=== PATIENT | male | born 1985 | race American Indian/Alaskan Native ===

== ENCOUNTER 2020-10-06 22:12 | Emergency (ER) | payer MEDICAID ==
[2020-10-06 22:25] VITALS: BP 125/75
--- NOTE | 2020-10-06 23:14 | XRay Report ---
CHEST 2 VIEWS INDICATION / CLINICAL INFORMATION: SOB. COMPARISON: None available. FINDINGS: SUPPORT DEVICES: None. HEART / MEDIASTINUM: No significant abnormality. LUNGS / PLEURA: Bullous emphysema both lung apices, right greater than left. No significant pulmonary or pleural abnormality. No pneumothorax. ADDITIONAL FINDINGS: No significant additional findings. IMPRESSION: 1. Bullous emphysema. No acute findings Signer Name: Carson Dawson MD Signed: 10/06/2020 11:10 PM Workstation Name: [id number]
[2020-10-07] MEDS ORDERED: IBUPROFEN 600 MG TAB PO ONE (00:41)
[2020-10-07] MEDS ORDERED: predniSONE 20 MG TAB PO ONE (00:41)
[2020-10-07] MEDS ORDERED: IPRATROPIUM/ALBUTEROL SULFATE 3 ML AMPUL.NEB IH ONE (00:41)
[2020-10-07] MEDS ORDERED: ALBUTEROL 2.5 MG/3 ML NEBU IH ONE (00:41)
--- NOTE | 2020-10-07 02:19 | Emergency Department Report ---
- General Chief Complaint: Dyspnea/Respdistress Stated Complaint: ASTHMA Source: patient Mode of arrival: Ambulatory Limitations: No Limitations - History of Present Illness Initial Comments: Patient is a 35-year-old -Japanese male with a history of asthma, chronic osteoarthritis and bronchitis who presents to the ED with complaint of acute onset persistent nasal and sinus congestion, persistent dry cough, frontal sinus pressure, wheezing and shortness of breath for the last 4 days. Patient states that he has been using albuterol inhaler with no relief. Patient also complains of right wrist pain after heavy lifting at work 2 days ago. Patient denies dizziness, syncope, fall, nausea and vomiting, chest pain, fever, chills, sore throat, abdominal pain, neck pain, change in vision, traumatic injury, low back pain or dysuria. MD Complaint: cough, rhinorrhea, nasal congestion, sinus pain, other (right wrist pain) -: Sudden, days(s) (4) Severity: moderate Severity scale (0 -10): 6 Quality: sharp, aching Consistency: constant Improves With: nothing Worsens With: nothing Associated Symptoms: denies other symptoms, rhinorrhea, nasal congestion, cough, shortness of breath. denies: fever, chills, myalgias, diaphoresis, headache, sore throat, stiff neck, chest pain, abdominal pain, nausea, vomiting, diarrhea, dysuria, rash, right sweats, epistaxis, hoarseness, ear pain Treatments Prior to Arrival: "cold medicine", other (Bronchodilators) - Related Data Previous Rx's Medication Instructions Recorded Last Taken Type Albuterol Sulfate [Proventil Hfa] 1 - 2 puff IH Q6H PRN #1 hfa.aer.ad 10/07/20 Unknown Rx Benzonatate [Tessalon Perles] 100 mg PO Q8HR #30 capsule 10/07/20 Unknown Rx Cetirizine HCl [Zyrtec 10mg tab] 10 mg PO DAILY #30 tablet 10/07/20 Unknown Rx Ibuprofen [Motrin] 600 mg PO Q8H PRN #30 tablet 10/07/20 Unknown Rx Prednisone [predniSONE 10 mg 10 mg PO .TAPER #21 tab.ds.pk 10/07/20 Unknown Rx (6-Day Pack, 21 Tabs)] Allergies Allergy/AdvReac Type Severity Reaction Status Date / Time No Known Allergies Allergy Unverified 10/06/20 22:24 ED Review of Systems ROS: Stated complaint: ASTHMA Other details as noted in HPI Constitutional: denies: chills, fever Eyes: denies: eye pain, eye discharge, vision change ENT: congestion. denies: ear pain, throat pain Respiratory: cough, shortness of breath, wheezing Cardiovascular: denies: chest pain, palpitations Endocrine: no symptoms reported Gastrointestinal: denies: abdominal pain, nausea, diarrhea Genitourinary: denies: urgency, dysuria Musculoskeletal: joint swelling, arthralgia (Right wrist pain). denies: back pain, myalgia Skin: denies: rash, lesions Neurological: denies: headache, weakness, paresthesias Psychiatric: denies: anxiety, depression Hematological/Lymphatic: denies: easy bleeding, easy bruising ED Past Medical Hx - Past Medical History Hx Arthritis: Yes Hx Asthma: Yes Additional medical history: bronchitis - Surgical History Past Surgical History?: Yes Additional Surgical History: r knee surgery, umbilical hernia repair - Social History Smoking Status: Current Every Day Smoker - Medications Home Medications: Home Medications Medication Instructions Recorded Confirmed Last Taken Type Albuterol Sulfate [Proventil Hfa] 1 - 2 puff IH Q6H PRN #1 hfa.aer.ad 10/07/20 Unknown Rx Benzonatate [Tessalon Perles] 100 mg PO Q8HR #30 capsule 10/07/20 Unknown Rx Cetirizine HCl [Zyrtec 10mg tab] 10 mg PO DAILY #30 tablet 10/07/20 Unknown Rx Ibuprofen [Motrin] 600 mg PO Q8H PRN #30 tablet 10/07/20 Unknown Rx Prednisone [predniSONE 10 mg 10 mg PO .TAPER #21 tab.ds.pk 10/07/20 Unknown Rx (6-Day Pack, 21 Tabs)] ED Physical Exam - General Limitations: No Limitations General appearance: alert, in no apparent distress - Head Head exam: Present: atraumatic, normocephalic, normal inspection - Eye Eye exam: Present: normal appearance, PERRL, EOMI Pupils: Present: normal accommodation - ENT ENT exam: Present: normal orophraynx, mucous membranes moist, TM's normal bilaterally, normal external ear exam, other (Grossly congested nasal passages; palpable maxillary and frontal sinus tenderness) - Neck Neck exam: Present: normal inspection, full ROM. Absent: tenderness, meningismus, lymphadenopathy - Respiratory Respiratory exam: Present: wheezes (Mildly diffuse coarse wheezes throughout). Absent: respiratory distress, rales, rhonchi, chest wall tenderness, accessory muscle use, decreased breath sounds - Cardiovascular Cardiovascular Exam: Present: regular rate, normal rhythm, normal heart sounds. Absent: systolic murmur, diastolic murmur, rubs, gallop - GI/Abdominal GI/Abdominal exam: Present: soft, normal bowel sounds. Absent: tenderness, guarding, rebound, hyperactive bowel sounds, hypoactive bowel sounds, organomegaly - Extremities Exam Extremities exam: Present: normal inspection, full ROM, tenderness (Palpable right wrist joint tenderness with mild swelling), normal capillary refill, joint swelling - Back Exam Back exam: Present: normal inspection, full ROM. Absent: tenderness, CVA tenderness (R), CVA tenderness (L), muscle spasm, paraspinal tenderness, vertebral tenderness - Neurological Exam Neurological exam: Present: alert, oriented X3, CN II-XII intact, normal gait, reflexes normal - Psychiatric Psychiatric exam: Present: normal affect, normal mood - Skin Skin exam: Present: warm, dry, intact, normal color. Absent: rash ED Course Vital Signs 10/06/20 10/07/20 22:22 01:54 Temperature 98.0 F Pulse Rate 75 Pulse Rate [ 88 Bilateral Throughout] Respiratory 18 Rate Respiratory 20 Rate [Bilateral Throughout] Blood Pressure 125/75 O2 Sat by Pulse 97 Oximetry ED Medical Decision Making - Radiology Data Radiology results: report reviewed, image reviewed [facility] [address] [place] [address] XRay Report Signed Patient: MAGGIE KRAUS MR#: [id number] 34 : 1985 Acct:[id number] Age/Sex: 35 / M ADM Date: 10/06/20 Loc: ED Attending Dr: Ordering Physician: LUIS EDUARDO EID MD Date of Service: 10/06/20 Procedure(s): XR chest routine 2V Accession Number(s): [id number] cc: ED MD STANTON Fluoro Time In Minutes: CHEST 2 VIEWS INDICATION / CLINICAL INFORMATION: SOB. COMPARISON: None available. FINDINGS: SUPPORT DEVICES: None. HEART / MEDIASTINUM: No significant abnormality. LUNGS / PLEURA: Bullous emphysema both lung apices, right greater than left. No significant pulmonary or pleural abnormality. No pneumothorax. ADDITIONAL FINDINGS: No significant additional findings. IMPRESSION: 1. Bullous emphysema. No acute findings Signer Name: Carson Dawson MD Signed: 10/06/2020 11:10 PM Workstation Name: [id number] Transcribed By: TL Dictated By: Carson Dawson MD Electronically Authenticated By: Carson Dawson MD Signed Date/Time: 10/06/202309 DD/ 08 TD/TT: - Medical Decision Making This is a 35-year-old -Japanese male with a history of asthma, chronic osteoarthritis and bronchitis who presents to the ED with complaint of acute onset persistent nasal and sinus congestion, persistent dry cough, frontal sinus pressure, wheezing and shortness of breath for the last 4 days. Patient states that he has been using albuterol inhaler with no relief. Patient also complains of right wrist pain after heavy lifting at work 2 days ago. In the ED, patient is alert and oriented x3 and is not in any distress. Patient was treated in the ED with albuterol and DuoNeb nebulizers. Patient also received steroids. Chest x-ray shows no acute cardiopulmonary abnormalities or pneumonitis. On reevaluation, patient's wheezing resolved patient felt better and was discharged home on medications. Patient was advised to follow-up with his primary care physician in 5 to 7 days for reevaluation. Patient was advised return to the ED immediately if symptoms get worse. - Differential Diagnosis Asthma; Bronchitis; Pneumonia; URI; Wrist tendonitis Critical care attestation.: If time is entered above; I have spent that time in minutes in the direct care of this critically ill patient, excluding procedure time. ED Disposition Clinical Impression: Acute bronchitis with asthma with acute exacerbation, Acute upper respiratory infection, Tendinitis of right wrist Disposition: DC-01 TO HOME OR SELFCARE Is pt being admited?: No Does the pt Need Aspirin: No Condition: Stable Instructions: Acute Bronchitis (ED), Upper Respiratory Infection, Adult, [id number], Cough, Adult, Gruy-fn-Fjze, Acute Bronchitis, Adult, Twnx-jp-Algy, Asthma, Adult, [id number]-gu-Gazu, Tendinitis, [id number] Additional Instructions: Chest x-ray shows no acute cardiopulmonary abnormalities or pneumonitis. Therefore take medication with food, drink plenty of fluids and follow-up with your primary care physician in 7 to 10 days for reevaluation. Return to the ED immediately if symptoms get worse. Prescriptions: Ibuprofen [Motrin] 600 mg PO Q8H PRN #30 tablet PRN Reason: Pain Prednisone [predniSONE 10 mg (6-Day Pack, 21 Tabs)] 10 mg PO .TAPER #21 tab.ds.pk Albuterol Sulfate [Proventil Hfa] 1 - 2 puff IH Q6H PRN #1 hfa.aer.ad PRN Reason: Wheezing Benzonatate [Tessalon Perles] 100 mg PO Q8HR #30 capsule Cetirizine HCl [Zyrtec 10mg tab] 10 mg PO DAILY #30 tablet Referrals: [facility] [Provider Group] - 3-5 Days Forms: Work/School Release Form(ED) Time of Disposition: 02:20 Print Language: KYRGYZ
== END 2020-10-07 02:50 | disposition home or self-care (01) ==
LOC: ED 22:12
DX: J06.9 Acute upper respiratory infection, unspecified (principal); J20.9 Acute bronchitis, unspecified; M77.8 Other enthesopathies, not elsewhere classified; F17.200 Nicotine dependence, unspecified, uncomplicated; J45.909 Unspecified asthma, uncomplicated; M19.90 Unspecified osteoarthritis, unspecified site; Z79.899 Other long term (current) drug therapy; Z98.890 Other specified postprocedural states
CPT/HCPCS: 71046; 94640; 99283; J7512; 94644

== ENCOUNTER 2020-10-15 00:54 | Emergency (ER) | payer SELFPAY ==
--- NOTE | 2020-10-15 02:47 | XRay Report ---
LEFT FOOT 3 VIEWS INDICATION / CLINICAL INFORMATION: Injury to foot. COMPARISON: None available. FINDINGS: Diffuse soft tissue swelling of the forefoot. No fracture or other skeletal abnormality. LEFT ANKLE 2 VIEWS INDICATION / CLINICAL INFORMATION: Injury to foot. COMPARISON: None available. FINDINGS: No fracture or other significant abnormality. Signer Name: Joseph Call MD Signed: 10/15/2020 2:42 AM Workstation Name: [id number]
[2020-10-15] MEDS ORDERED: IBUPROFEN 600 MG TAB PO ONE ×2 (05:02→05:03)
[2020-10-15] MEDS ORDERED: HYDROcodone/ACETAMINOPHEN 5-325 MG TAB PO ONE (05:03)
--- NOTE | 2020-10-15 05:08 | Emergency Department Report ---
ED Lower Extremity HPI - General Chief Complaint: Extremity Injury, Lower Stated Complaint: LT FOOT AND ANKLE PAIN Time Seen by Provider: 10/15/20 05:03 Source: patient Mode of arrival: Wheelchair Limitations: No Limitations - History of Present Illness Initial Comments: 35-year-old -[place] male presents to the emergency room for left foot injury while at work with. Patient states he smashed his foot between 2 pallets at work. States the pain is worse with walking or putting any weight on. Patient states the swelling seems to gotten worse. Patient did not take anything prior to arrival. History of asthma. Only takes albuterol and Claritin for pollen. Onset/Timin -: hour(s) (To arrival) Injury: Ankle: Left, Foot: Left Type of Injury: other (Crush) Place: work Severity scale (0 -10): 10 Improves With: immobilization Worsens With: weight bearing, movement, palpation Associated Symptoms: swelling, tingling, unable to bear weight - Related Data Previous Rx's Medication Instructions Recorded Last Taken Type Albuterol Sulfate [Proventil Hfa] 1 - 2 puff IH Q6H PRN #1 hfa.aer.ad 10/07/20 Unknown Rx Benzonatate [Tessalon Perles] 100 mg PO Q8HR #30 capsule 10/07/20 Unknown Rx Cetirizine HCl [Zyrtec 10mg tab] 10 mg PO DAILY #30 tablet 10/07/20 Unknown Rx Ibuprofen [Motrin] 600 mg PO Q8H PRN #30 tablet 10/07/20 Unknown Rx Prednisone [predniSONE 10 mg 10 mg PO .TAPER #21 tab.ds.pk 10/07/20 Unknown Rx (6-Day Pack, 21 Tabs)] Ibuprofen [Motrin 800 MG tab] 800 mg PO Q8HR PRN #30 tablet 10/15/20 Unknown Rx Allergies Allergy/AdvReac Type Severity Reaction Status Date / Time No Known Allergies Allergy Unverified 10/06/20 22:24 ED Review of Systems ROS: Stated complaint: LT FOOT AND ANKLE PAIN Other details as noted in HPI ED Past Medical Hx - Past Medical History Previous Medical History?: Yes Hx Arthritis: Yes Hx Asthma: Yes Additional medical history: bronchitis - Surgical History Past Surgical History?: Yes Additional Surgical History: r knee surgery, umbilical hernia repair - Social History Smoking Status: Current Every Day Smoker Substance Use Type: Marijuana - Medications Home Medications: Home Medications Medication Instructions Recorded Confirmed Last Taken Type Albuterol Sulfate [Proventil Hfa] 1 - 2 puff IH Q6H PRN #1 hfa.aer.ad 10/07/20 Unknown Rx Benzonatate [Tessalon Perles] 100 mg PO Q8HR #30 capsule 10/07/20 Unknown Rx Cetirizine HCl [Zyrtec 10mg tab] 10 mg PO DAILY #30 tablet 10/07/20 Unknown Rx Ibuprofen [Motrin] 600 mg PO Q8H PRN #30 tablet 10/07/20 Unknown Rx Prednisone [predniSONE 10 mg 10 mg PO .TAPER #21 tab.ds.pk 10/07/20 Unknown Rx (6-Day Pack, 21 Tabs)] Ibuprofen [Motrin 800 MG tab] 800 mg PO Q8HR PRN #30 tablet 10/15/20 Unknown Rx ED Physical Exam - General Limitations: No Limitations General appearance: alert, in no apparent distress - Head Head exam: Present: atraumatic, normocephalic - Eye Eye exam: Present: normal appearance - ENT ENT exam: Present: normal exam - Neck Neck exam: Present: normal inspection, full ROM - Respiratory Respiratory exam: Absent: accessory muscle use - Expanded Lower Extremity Exam Left Hip exam: Present: normal inspection Upper Leg exam: Present: normal inspection Knee exam: Present: normal inspection Lower Leg exam: Present: normal inspection Ankle exam: Present: tenderness Foot/Toe exam: Present: full ROM, tenderness, swelling. Absent: erythema Neuro vascular tendon exam: Present: no vascular compromise Gait: Positive: unable to bear weight - Back Exam Back exam: Present: normal inspection, full ROM - Neurological Exam Neurological exam: Present: alert, oriented X3 - Psychiatric Psychiatric exam: Present: normal affect, normal mood - Skin Skin exam: Present: warm, dry, intact, normal color. Absent: rash ED Course Vital Signs 10/15/20 01:00 Temperature 98.3 F Pulse Rate 98 H Respiratory 18 Rate Blood Pressure 118/89 O2 Sat by Pulse 98 Oximetry ED Lower Extremity MDM - Medical Decision Making 35-year-old -[place] male presents to the emergency room for left foot injury while at work with. Patient states he smashed his foot between 2 pallets at work. States the pain is worse with walking or putting any weight on. Patient states the swelling seems to gotten worse. Patient did not take anythin g prior to arrival. History of asthma. Only takes albuterol and Claritin for pollen. X-ray of ankle and foot shows no fractures or subluxation or dislocation. Patient is given ibuprofen and [place] 5/325 as patient has an ride home. Patient was placed on crutches Kirk bandage to his left foot. Work excuse given. Critical care attestation.: If time is entered above; I have spent that time in minutes in the direct care of this critically ill patient, excluding procedure time. ED Disposition Clinical Impression: Sprain of foot, left, Left ankle injury Disposition: TO HOME OR SELFCARE Is pt being admited?: No Does the pt Need Aspirin: No Condition: Stable Instructions: Foot Sprain Additional Instructions: X-rays negative for any acute fractures. Please put ice on it, elevate wear Kirk bandage and use crutches to ambulate. Prescriptions: Ibuprofen [Motrin 800 MG tab] 800 mg PO Q8HR PRN #30 tablet PRN Reason: Pain , Severe (7-10) Referrals: PRIMARY CARE, [Primary Care Provider] - 3-5 Days Forms: Work/School Release Form(ED)
[2020-10-15 05:37] VITALS: BP 118/65
== END 2020-10-15 05:37 | disposition home or self-care (01) ==
LOC: ED 00:54
DX: S93.602A Unspecified sprain of left foot, initial encounter (principal); S93.402A Sprain of unspecified ligament of left ankle, initial encounter; M19.90 Unspecified osteoarthritis, unspecified site; J45.909 Unspecified asthma, uncomplicated; F17.200 Nicotine dependence, unspecified, uncomplicated; F12.10 Cannabis abuse, uncomplicated; Z79.899 Other long term (current) drug therapy; W23.0XXA Caught, crushed, jammed, or pinched between moving objects, initial encounter; Y93.89 Activity, other specified; Y92.89 Other specified places as the place of occurrence of the external cause; Y99.8 Other external cause status
CPT/HCPCS: 99283

== ENCOUNTER 2022-01-17 11:20 | Emergency (ER) | payer SELFPAY ==
[2022-01-17 12:41] LABS: Hematocrit 58.5 % (35.5-45.6); Hemoglobin 19.6 gm/dl (11.8-15.2); Mean Corpuscular HGB Conc 33 % (32-34); Mean Corpuscular Volume 90 fl (84-94); Platelet Count 252 K/mm3 (140-440); Red Blood Count 6.49 M/mm3 (3.65-5.03)
[2022-01-17 13:15] LABS: Alanine Aminotransferase 16 units/L (7-56); Albumin 5.3 g/dL (3.9-5); BUN/Creatinine Ratio 10; Blood Urea Nitrogen 30 mg/dL (9-20); Calcium 10.6 mg/dL (8.4-10.2); Hemolysis Index 16
--- NOTE | 2022-01-17 14:31 | XRay Report ---
CHEST 2 VIEWS INDICATION / CLINICAL INFORMATION: Chest pain. COMPARISON: 10/06/20. FINDINGS: SUPPORT DEVICES: None. HEART / MEDIASTINUM: The heart size and pulmonary vasculature are normal. The aorta is normal in carisa lashawn. LUNGS / PLEURA: There are bullous changes in both upper lung zones, right greater than left, which bowser ve increased. No acute pulmonary or pleural abnormality. No pneumothorax. ADDITIONAL FINDINGS: No significant additional findings. IMPRESSION: Bullous changes in both upper lung zones, right greater than left, have increased. No pne umothorax or other change. Signer Name: Alirio Briceño MD Signed: 01/17/2022 2:27 PM Workstation Name: [employer]
[2022-01-17] MEDS ORDERED: methylPREDNISolone Sod Succinate 125 MG/2 ML INJ IV ONE (21:51)
[2022-01-17] MEDS ORDERED: SODIUM CHLORIDE 0.9% 1000 ML 1,000 ML IV ONE (21:51)
[2022-01-17] MEDS ORDERED: ALBUTEROL 2.5 MG/3 ML NEBU IH ONE (21:51)
[2022-01-17] MEDS ORDERED: IPRATROPIUM 0.02% NEBU 2.5 ML IH ONE (21:51)
[2022-01-17] MEDS ORDERED: fentaNYL 100 MCG/2 ML INJ IV ONE (23:02)
[2022-01-18 00:13] LABS: Creatine Kinase MB 3.1 ng/mL (0.0-4.0)
--- NOTE | 2022-01-18 00:48 | Emergency Department Report ---
ED General Adult HPI - General Chief complaint: Dyspnea/Respdistress Stated complaint: SOB/LOSS OF BLOOD/HEMMOROID Time Seen by Provider: 01/17/22 21:42 Source: patient Mode of arrival: Ambulatory Limitations: No Limitations - History of Present Illness Initial comments: Pt reports his hemorrhoids have been bleeding since sunday. Pt reports pain to the lower right area of his chest. Pt states he feels like he is going to pass out from weakness. + SOB, breath sounds are clear in triage -: Gradual Location: buttocks Radiation: non-radiation Severity scale (0 -10): 10 Quality: aching Consistency: constant Improves with: none Worsens with: none - Related Data Previous Rx's Medication Instructions Recorded Last Taken Type Albuterol Sulfate [Proventil Hfa] 1 - 2 puff IH Q6H PRN #1 hfa.aer.ad 10/07/20 Unknown Rx Benzonatate [Tessalon Perles] 100 mg PO Q8HR #30 capsule 10/07/20 Unknown Rx Cetirizine HCl [Zyrtec 10mg tab] 10 mg PO DAILY #30 tablet 10/07/20 Unknown Rx Ibuprofen [Motrin] 600 mg PO Q8H PRN #30 tablet 10/07/20 Unknown Rx Prednisone [predniSONE 10 mg 10 mg PO .TAPER #21 tab.ds.pk 10/07/20 Unknown Rx (6-Day Pack, 21 Tabs)] Ibuprofen [Motrin 800 MG tab] 800 mg PO Q8HR PRN #30 tablet 10/15/20 Unknown Rx Albuterol Mdi (or & Nicu Only) 2 puff IH QID PRN #8.5 gram 01/18/22 Unknown Rx [ProAir HFA Inhaler] Hydrocortisone [Procto-Med Hc] 28 gm TP DAILY #7 01/18/22 Unknown Rx Allergies Allergy/AdvReac Type Severity Reaction Status Date / Time No Known Allergies Allergy Unverified 10/06/20 22:24 ED Review of Systems ROS: Stated complaint: SOB/LOSS OF BLOOD/HEMMOROID Other details as noted in HPI Constitutional: denies: chills, fever Eyes: denies: eye pain, eye discharge, vision change ENT: denies: ear pain, throat pain Respiratory: denies: cough, shortness of breath, wheezing Cardiovascular: denies: chest pain, palpitations Endocrine: no symptoms reported Gastrointestinal: denies: abdominal pain, nausea, diarrhea Genitourinary: denies: urgency, dysuria Musculoskeletal: denies: back pain, joint swelling, arthralgia Skin: denies: rash, lesions Neurological: denies: headache, weakness, paresthesias Psychiatric: denies: anxiety, depression Hematological/Lymphatic: denies: easy bleeding, easy bruising ED Past Medical Hx - Past Medical History Previous Medical History?: No Hx Hypertension: No Hx Arthritis: Yes Hx Asthma: Yes Additional medical history: bronchitis, hemorrhoids - Surgical History Additional Surgical History: r knee surgery, umbilical hernia repair, right hip replacement - Social History Smoking Status: Current Every Day Smoker - Medications Home Medications: Home Medications Medication Instructions Recorded Confirmed Last Taken Type Albuterol Sulfate [Proventil Hfa] 1 - 2 puff IH Q6H PRN #1 hfa.aer.ad 10/07/20 Unknown Rx Benzonatate [Tessalon Perles] 100 mg PO Q8HR #30 capsule 10/07/20 Unknown Rx Cetirizine HCl [Zyrtec 10mg tab] 10 mg PO DAILY #30 tablet 10/07/20 Unknown Rx Ibuprofen [Motrin] 600 mg PO Q8H PRN #30 tablet 10/07/20 Unknown Rx Prednisone [predniSONE 10 mg 10 mg PO .TAPER #21 tab.ds.pk 10/07/20 Unknown Rx (6-Day Pack, 21 Tabs)] Ibuprofen [Motrin 800 MG tab] 800 mg PO Q8HR PRN #30 tablet 10/15/20 Unknown Rx Albuterol Mdi (or & Nicu Only) 2 puff IH QID PRN #8.5 gram 01/18/22 Unknown Rx [ProAir HFA Inhaler] Hydrocortisone [Procto-Med Hc] 28 gm TP DAILY #7 01/18/22 Unknown Rx ED Physical Exam - General Limitations: No Limitations General appearance: alert, in no apparent distress - Head Head exam: Present: atraumatic, normocephalic - Eye Eye exam: Present: normal appearance - ENT ENT exam: Present: mucous membranes moist - Neck Neck exam: Present: normal inspection - Respiratory Respiratory exam: Present: normal lung sounds bilaterally. Absent: respiratory distress - Cardiovascular Cardiovascular Exam: Present: regular rate, normal rhythm. Absent: systolic murmur, diastolic murmur, rubs, gallop - GI/Abdominal GI/Abdominal exam: Present: soft, normal bowel sounds - Rectal Rectal exam: Present: hemorrhoids, mass - Extremities Exam Extremities exam: Present: normal inspection - Back Exam Back exam: Present: normal inspection - Neurological Exam Neurological exam: Present: alert, oriented X3 - Psychiatric Psychiatric exam: Present: normal affect, normal mood - Skin Skin exam: Present: warm, dry, intact, normal color. Absent: rash ED Course Vital Signs 01/17/22 11:54 Temperature 98.9 F Pulse Rate 74 Respiratory 20 Rate Blood Pressure 102/60 O2 Sat by Pulse 97 Oximetry ED Medical Decision Making - Lab Data Result diagrams: 01/17/22 12:20 01/17/22 12:20 - EKG Data -: EKG Interpreted by Or EKG shows normal: sinus rhythm - EKG Data Interpretation: no acute changes - Radiology Data Radiology results: report reviewed, image reviewed - Medical Decision Making injection of hemorrhoids, bleeding controlled rt given vss Critical care attestation.: If time is entered above; I have spent that time in minutes in the direct care of this critically ill patient, excluding procedure time. ED Disposition Clinical Impression: SOB (shortness of breath), Asthma exacerbation, Hemorrhoids without complication Disposition: 01 HOME / SELF CARE / HOMELESS Is pt being admited?: No Does the pt Need Aspirin: No Condition: Stable Instructions: Asthma, Adult, Hemorrhoids, Xrop-un-Sper Referrals: NATASHA MABRY MD [Primary Care Provider] - 3-5 Days
[2022-01-18] MEDS ORDERED: IBUPROFEN 800 MG TAB PO ONE (01:38)
[2022-01-18 03:34] VITALS: BP 107/65
--- NOTE | 2022-01-18 17:48 | Electrocardiograph Report ---
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
--- NOTE | 2022-01-18 17:54 | Electrocardiograph Report ---
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
== END 2022-01-18 03:37 | disposition home or self-care (01) ==
LOC: ED 11:20
DX: K64.9 Unspecified hemorrhoids (principal); J45.901 Unspecified asthma with (acute) exacerbation; R06.02 Shortness of breath; M19.90 Unspecified osteoarthritis, unspecified site; Z98.890 Other specified postprocedural states; F17.290 Nicotine dependence, other tobacco product, uncomplicated
CPT/HCPCS: 36415; 71046; 80053; 82550; 82553; 84484; 85027; 93005; 94640; 96361; 96374; 96375; 99284; J2930; J3010; J7030